=== PATIENT | female | born 2000 | race African-American/Black ===

== ENCOUNTER 2024-09-21 06:33 | Emergency (ER) | payer BC ==
[2024-09-21] MEDS ORDERED: predniSONE 20 MG TAB ONE (07:26)
--- NOTE | 2024-09-21 08:22 | RAD REPORT ---
EXAMINATION: TWO VIEW CHEST XR CLINICAL INDICATION: Female, 24 years old. [facility] MAIN COUGH Bed Name: 6 TECHNIQUE: 2 view radiographs of the chest were performed. COMPARISON: No prior exam. FINDINGS: The lungs are well inflated and clear. No pneumothorax or sizable effusion. The heart is normal in si ze. Mediastinal contours are unremarkable. IMPRESSION: No acute or significant abnormalities.
--- NOTE | 2024-09-21 08:36 | ER ---
Nurse's Notes [facility] Name: Mona Rolle Age: 24 yrs Sex: Female : 2000 Arrival Date: 09/21/2024 Time: 06:33 Bed 6 Private MD: Diagnosis: Acute bronchitis, unspecified Presentation: 09/21 06:33 Chief complaint: Patient states: productive cough for two weeks with no fever. 8 06:33 Method Of Arrival: Ambulatory 8 06:33 Coronavirus screen: Vaccine status: Patient reports receiving the 2nd dose of the covid bm8 vaccine. At this time, the client does not indicate any symptoms associated with coronavirus-19. Ebola Screen: Patient negative for fever greater than or equal to 101.5 degrees Fahrenheit, and additional compatible Ebola Virus Disease symptoms Patient denies exposure to infectious person. Patient denies travel to an Ebola-affected area in the 21 days before illness onset. No symptoms or risks identified at this time. Initial Sepsis Screen: Does the patient meet any 2 criteria? No. Patient's initial sepsis screen is negative. Does the patient have a suspected source of infection? No. Patient's initial sepsis screen is negative. Risk Assessment: Do you want to hurt yourself or someone else? Patient reports no desire to harm self or others. Onset of symptoms was September 07, 2023. 06:33 Acuity: HOANG 3 bm8 Triage Assessment: 06:51 General: Appears in no apparent distress. comfortable, Behavior is calm, cooperative, bm8 appropriate for age. Pain: Complains of pain in chest Pain currently is 3 out of 10 on a pain scale. EENT: No deficits noted. No signs and/or symptoms were reported regarding the EENT system. Neuro: No deficits noted. Level of Consciousness is awake, alert, obeys commands, Oriented to person, place, time, situation, Appropriate for age. Cardiovascular: Reports chest pain, from cough Heart tones S1 S2 present Capillary refill < 3 seconds in bilateral fingers. Respiratory: No deficits noted. Airway is patent Trachea midline Respiratory effort is even, unlabored, Respiratory pattern is regular, symmetrical, Breath sounds are clear bilaterally. Respiratory: Reports cough that is productive, pain with cough. GI: No signs and/or symptoms were reported involving the gastrointestinal system. : No signs and/or symptoms were reported regarding the genitourinary system. Derm: No signs and/or symptoms reported regarding the dermatologic system. Musculoskeletal: No signs and/or symptoms reported regarding the musculoskeletal system. 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 - Infectious Disease History:: Denies. - Social history:: Smoking status: Reported history of juuling and/or vaping. - Family history:: not pertinent. Screenin:54 [facility] ED Fall Risk Assessment (Adult) History of falling in the last 3 months, bm8 including since admission No falls in past 3 months (0 pts) Confusion or Disorientation No (0 pts) Intoxicated or Sedated No (0 pts) Impaired Gait No (0 pts) Mobility Assist Device Used No (0 pt) Altered Elimination No (0 pt) Score/Fall Risk Level 0 - 2 = Low Risk Oriented to surroundings, Maintained a safe environment, Educated pt \T\ family on fall prevention, incl call for assistance when getting out of bed, Assessed \T\ reinforced patient's understanding of fall precautions, Hourly rounding (assess needs \T\ fall precautionary measures) done, Used ambulatory aids as needed (educated on \T\ assisted with), Used gait belt as appropriate. Abuse screen: Denies threats or abuse. Nutritional screening: No deficits noted. Tuberculosis screening: No symptoms or risk factors identified. Assessment: 06:54 Reassessment: see triage assessment. bm8 Vital Signs: 06:33 BP 111 / 81; Pulse 103; Resp 19; Temp 98.7; Pulse Ox 100% ; Weight 68.04 kg; Height 5 bm8 ft. 3 in. ; Pain 3/10; 08:44 BP 107 / 71; Pulse 95; Resp 16; Pulse Ox 100% ; bp 06:33 Body Mass Index 26.57 (68.04 kg, 160.02 cm) bm8 06:33 Pain Scale: Adult bm8 Lizeth Coma Score: 06:54 Eye Response: spontaneous(4). Motor Response: obeys commands(6). Verbal Response: bm8 oriented(5). Total: 15. ED Course: 06:43 Patient arrived in ED. [email or web address] 06:49 Adam Govea, RN is Primary Nurse. bm8 06:51 Triage completed. bm8 06:51 Arm band placed on right wrist. bm8 06:54 Patient has correct armband on for positive identification. Placed in gown. Bed in low bm8 position. Call light in reach. Side rails up X 1. Client placed on continuous cardiac and pulse oximetry monitoring. NIBP monitoring applied. Pulse ox on. NIBP on. Door closed. Noise minimized. Warm blanket given. Pillow given. Verbal reassurance given. Head of bed elevated. 06:54 No provider procedures requiring assistance completed. bm8 06:59 Noah Garcia MD is Attending Physician. rt 07:20 Primary Nurse role handed off by Adam Govea, FELECIA lopez 07:31 Umair Quigley, RN is Primary Nurse. bp 07:34 Chest Pa And Lat (2 Views) XRAY In Process Unspecified. EDMS 08:43 Patient did not have IV access during this emergency room visit. bp Administered Medications: 07:31 Drug: predniSONE PO 40 mg PO once Route: PO; bp 08:45 Follow up: Response: No adverse reaction bp Medication: 06:54 VIS not applicable for this client. bm8 Outcome: 08:35 Discharge ordered by . rt 08:43 Discharged to home ambulatory, bp 08:43 Condition: stable 08:43 Discharge instructions given to patient, Instructed on discharge instructions, follow up and referral plans. medication usage, Demonstrated understanding of instructions, follow-up care, medications, Prescriptions given X 2, 08:45 Patient left the ED. bp Signatures: Dispatcher [employer] EDMS Wendi Robb bd Umair Quigley, RN RN bp Bruce Denita [email or web address] Noah Garcia MD MD rt Adam Govea, RN RN bm8
--- NOTE | 2024-09-21 08:36 | EDPHYS ---
Physician Documentation [facility] Name: Mona Rolle Age: 24 yrs Sex: Female : 2000 Arrival Date: 09/21/2024 Time: 06:33 Bed 6 Private MD: ED Physician Noah Garcia HPI: 09/21 07:45 This 24 yrs old Black Female presents to ER via Ambulatory with complaints of Cough. rt 07:45 Patient presents to the ED with 2 weeks of productive cough. States that she has had rt sick contacts. States that the symptoms do worsen at nighttime and she develops wheezing. Denies any wheezing currently. Denies other acute complaints at this time, symptoms are mild in severity, no other aggravating or alleviating factors.. 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 - Infectious Disease History:: Denies. - Social history:: Smoking status: Reported history of juuling and/or vaping. - Family history:: not pertinent. ROS: 07:45 Constitutional: Negative for fever, chills, and weight loss, Cardiovascular: Negative rt for chest pain, palpitations, and edema, Abdomen/GI: Negative for abdominal pain, nausea, vomiting, diarrhea, and constipation, MS/Extremity: Negative for injury and deformity, Skin: Negative for injury, rash, and discoloration, Neuro: Negative for headache, weakness, numbness, tingling, and seizure, 07:45 Respiratory: Positive for cough, wheezing, Exam: 07:45 Constitutional: This is a well developed, well nourished patient who is awake, alert, rt and in no acute distress. Head/Face: Normocephalic, atraumatic. Chest/axilla: Normal chest wall appearance and motion. Nontender with no deformity. No lesions are appreciated. Cardiovascular: Regular rate and rhythm with a normal S1 and S2. No gallops, murmurs, or rubs. Normal PMI, no JVD. No pulse deficits. Respiratory: Lungs have equal breath sounds bilaterally, clear to auscultation and percussion. No rales, rhonchi or wheezes noted. No increased work of breathing, no retractions or nasal flaring. Abdomen/GI: Soft, non-tender, with normal bowel sounds. No distension or tympany. No guarding or rebound. No evidence of tenderness throughout. Skin: Warm, dry with normal turgor. Normal color with no rashes, no lesions, and no evidence of cellulitis. MS/ Extremity: Pulses equal, no cyanosis. Neurovascular intact. Full, normal range of motion. Vital Signs: 06:33 BP 111 / 81; Pulse 103; Resp 19; Temp 98.7; Pulse Ox 100% ; Weight 68.04 kg; Height 5 bm8 ft. 3 in. ; Pain 3/10; 08:44 BP 107 / 71; Pulse 95; Resp 16; Pulse Ox 100% ; bp 06:33 Body Mass Index 26.57 (68.04 kg, 160.02 cm) bm8 06:33 Pain Scale: Adult bm8 May Coma Score: 06:54 Eye Response: spontaneous(4). Motor Response: obeys commands(6). Verbal Response: bm8 oriented(5). Total: 15. MDM: 07:00 Medical Screening Exam initiated rt 10:15 Differential Diagnosis: Other Cough, bronchospasm, pneumonia. Data reviewed: vital rt signs, nurses notes, lab test result(s), radiologic studies. I considered the following discharge prescriptions or medication management in the emergency department Medications were administered in the Emergency Department. See MAR. Independent interpretation of the following test(s) in the Emergency Department X-Ray: My interpretation is No infiltrate seen on interpretation of x-ray images. Counseling: I had a detailed discussion with the patient and/or guardian regarding the historical points, exam findings, and any diagnostic results supporting the discharge/admit diagnosis, radiology results, the need for outpatient follow up. Response to treatment: the patient's symptoms have mildly improved after treatment. 09/21 07:05 Order name: Chest Pa And Lat (2 Views) XRAY; Complete Time: 08:32 rt Administered Medications: 07:31 Drug: predniSONE PO 40 mg PO once Route: PO; bp 08:45 Follow up: Response: No adverse reaction bp Disposition Summary: 09/21/24 08:35 Discharge Ordered Notes: Location: Home rt Problem: new rt Symptoms: have improved rt Condition: Stable rt Diagnosis - Acute bronchitis, unspecified rt Followup: rt - With: Private Physician - When: 2 - 3 days - Reason: Discharge Instructions: - Discharge Summary Sheet rt - Acute Bronchitis, Adult rt Forms: - Work release form rt - Medication Reconciliation Form rt - Antibiotic Education rt - Prescription Opioid Use rt - Patient Portal Instructions rt - Leadership Thank You Letter rt Prescriptions: - albuterol sulfate 90 mcg/actuation Inhalation HFA Aerosol Inhaler - inhale 1 inhalation INHALATION route every 3 to 6 hours as needed for rt bronchospasm;; 2 Each; Refills: 0, Product Selection Permitted - Prednisone 20 mg Oral tablet - take 2 tablets ORAL route once daily; 8 tablet; Refills: 0, Product Selection rt Permitted Signatures: Dispatcher [employer] Umair Darby, RN RN bp Noah Garcia MD MD rt Adam Govea RN RN bm8
[2024-09-21 08:51] VITALS: TEMP 98.7; O2SAT 100
[2024-09-21 08:52] VITALS: BP 107/71
== END 2024-09-21 08:45 | disposition home or self-care (01) ==
LOC: ER 06:33
DX: J20.9 Acute bronchitis, unspecified (principal)
CPT/HCPCS: 71046; 99284; J7512